=== PATIENT | male | born 1985 ===

== ENCOUNTER 2023-09-12 17:34 | Emergency (ER) | payer BC, SELFPAY ==
[2023-09-12 17:44] VITALS: BP 148/89
[2023-09-12 18:38] LABS: Urine Albumin Trace (Neg - Trace); Urine Bilirubin Negative (Negative); Urine Character Slightly Cloudy (Clear); Urine Color Yellow; Urine Glucose Negative (Negative); Urine Ketone Negative (Negative); Urine Leukocyte Negative (Negative); Urine Nitrite Negative (Negative); Urine Occult Blood 4+ (Negative); Urine Urobilinogen Negative (Neg - 1+); Urine pH 6.5 (5.0-9.0)
[2023-09-12] MEDS: TORADOL 30 MG IV (18:38)
[2023-09-12 18:39] LABS: % Basophils 0.6 % (0-2); % Eosinophils 0.6 % (0-6); % Immature Granulocytes 0.1 % (0-0.5); % Lymphocytes 26.1 % (20.5-51.1); % Monocytes 8.7 % (1.7-9.3); % Neutrophils 63.9 % (42.2-75.2); Absolute Basophils 0.1 10^3/uL (0-0.2); Absolute Eosinophils 0.1 10^3/uL (0-0.7); Absolute Lymphocytes 2.2 10^3/uL (1.2-3.4); Absolute Monocytes 0.7 10^3/uL (0.1-0.6); Absolute Neutrophils 5.3 10^3/uL (1.4-6.5); Hematocrit 40.7 % (39.0-52.0); Hemoglobin 14.7 g/dL (13.0-18.0); Mean Corp Hgb Conc. 36.1 g/dL (33.0-37.0); Mean Corpuscular Hgb 31.2 pg (27.0-31.0); Mean Corpuscular Volume 86.4 fL (80.0-94.0); Mean Platelet Volume 9.1 fL (7.4-10.4); Nucleated Red Blood Cells % 0 % (-); Platelet Count 303 10^3/uL (130-400); Red Blood Cell Count 4.71 10^6/uL (4.70-6.10); Red Cell Dist. Width 12.1 % (11.5-14.5); White Blood Cell Count 8.4 10^3/uL (4.8-10.8)
[2023-09-12] MEDS: NSS 1000 IV (18:41)
[2023-09-12 18:44] LABS: Urine Bacteria Few (Negative); Urine Red Blood Cell 70-80 /HPF (0-2); Urine White Cell 0-2 /HPF (0-5)
[2023-09-12 18:56] LABS: ALT (SGPT) 56 U/L (0-50); AST (SGOT) 39 U/L (17-59); Albumin 4.8 g/dl (3.5-5.0); Alkaline Phosphatase 92 U/L (38-126); Blood Urea Nitrogen 15 mg/dl (9-20); Calcium 9.9 mg/dl (8.4-10.2); Carbon Dioxide 26 mmol/L (22-30); Chloride 103 mmol/L (98-107); Glucose 96 mg/dl (70-99); Potassium 4.2 mmol/L (3.5-5.1); Sodium 140 mmol/L (135-145); Total Bilirubin 0.5 mg/dl (0.2-1.3); Total Protein 7.5 g/dl (6.3-8.2); eGFR > 60.00
[2023-09-12] MEDS: ZOFRAN 4 MG IV (20:06)
[2023-09-12] MEDS: DILAUDID 0.5 MG IV (20:07)
--- NOTE | 2023-09-12 21:05 | ED.GENMED ---
History of Present Illness
General
Chief Complaint: Flank Pain
Source: patient
Exam Limitations: none
Time Seen by Provider: 09/12/23 18:33
Nursing documentation reviewed up to this point in time: agreed with
History of Present Illness
History of Present Illness:
Patient to ED with complaint of right flank pain. Symptoms started this AM and continue to worsen. He has a history of kidney stones, symptoms are similar. Brought to eD by family for eval
Past History
Past History
ED Past Medical History: None
ED Past Surgical History: None
Review of Systems
Review of Systems
Allergies reviewed?: Yes
All Other Systems: ROS reviewed and negative except as documented in HPI and ROS
Constitutional: Reports no symptoms
EENT: Reports no symptoms
Respiratory: Reports no symptoms
Cardiac: Reports no symptoms
ABD/GI: Reports no symptoms
: Reports flank pain
Musculoskeletal: Reports no symptoms
Skin: Reports no symptoms
Neurological: Reports no symptoms
Psychiatric: Reports no symptoms
Phy Exam
General Physical Exam
General Presentation: well appearing and moderate distress
General age: appears stated age
General Skin: warm and dry
General Habitus: normal
General Mental: alert
Gastrointestinal Exam
Gastrointestinal Exam: non tender and soft
Musculoskeletal Exam
Musculoskeletal Exam: full ROM
Skin Exam
Skin Exam: normal color, warm/dry and no rash
Psychiatric Exam
Psychiatric Exam: normal mood/affect
Course
Orders/Labs/Results
Orders:
Orders
09/12/23 18:29
Urinalysis Reflex To Culture Urgent
Date Specimen was Collected: 09/12/23
Time Specimen was Collected: 17:53
Urine Microscopic Reflex Cult Urgent
09/12/23 18:31
Complete Blood Count/With Diff Urgent
Comprehensive Metabolic Panel Urgent
09/12/23 18:35
CT Abd/pel Without Iv Or Oral Urgent
Comment:
Reason For Exam: Right flankpain
0.9% Sodium Chloride 1000 ml [Nss] 1,000 ml IV BOLUS
Ketorolac [Toradol] 30 mg IV NOW STA
09/12/23 19:45
HYDROmorphone [Dilaudid] 0.5 mg IV NOW STA
Ondansetron Injectable [Zofran] 4 mg IV NOW STA
09/12/23 21:02
Tamsulosin [Flomax] 0.4 mg PO NOW STA
Abnormal Lab Results
09/12/23 09/12/23
18:29 18:31
MCH 31.2 H pg
(27.0-31.0)
Absolute Monos (auto) 0.7 H 10^3/uL
(0.1-0.6)
ALT 56 H U/L
(0-50)
Ur Occult Blood Reflex 4+ A
(Negative)
Urine RBC 70-80 A /HPF
(0-2)
Urine Bacteria (Reflex) Few A
(Negative)
09/12/23 18:31
09/12/23 18:31
Vital Signs
Initial and Last Documented VS:
Initial Vital Signs
Temp Pulse Resp BP Pulse Ox
98.7 F 64 18 148/89 98
09/12/23 17:44 09/12/23 17:44 09/12/23 17:44 09/12/23 17:44 09/12/23 17:44
Last Documented Vital Signs
Temp Pulse Resp BP Pulse Ox
98.7 F 64 18 148/89 98
09/12/23 17:44 09/12/23 17:44 09/12/23 17:44 09/12/23 17:44 09/12/23 17:44
*Radiology
Radiology exam reviewed: radiology read reviewed
*Pulse Oximetry
Patient hypoxic: no
*Critical Care Note
Total Time (30-74mins, 75-104mins- exclusive of procedures): Not Applicable
Update Note
Update Note:
Labs CT reviewed. 3mm obstruction right ureteral stone at [facility]. No UTI Pain controlled in dept. He prefers to use ibuprofen at home. Will discharge and he will followup with urology. GIven instructions on s/s tor eturn to ED and he is agreeable
to plan
ED Attending Note
-
Portions of this chart may have been created with voice recognition software.� Occasional wrong word or��sound alike� substitutions may have occurred due to the inherent limitations of voice recognition software.
Discharge Plan
Departure
Patient Disposition: Home (Routine Discharge)
Date of Disposition: 09/12/23
Time of Disposition: 21:02
Patient with high blood pressure during this ER visit?: No
Condition: Good
Covid-19: Not Applicable
Discharge Problem:
Kidney stone
Instructions: Kidney Stones (DC), Ibuprofen, How to Strain Your Urine
Prescriptions:
New
tamsulosin [Flomax] 0.4 mg capsule
0.4 mg PO DAILY Qty: 14 0RF
Referrals:
Pascual Saenz, DO [Family Provider] -
Markus Thompson MD [Active] - Call in 1-3 days for appt
Activity Restrictions/Additional Instructions:
Return to the emergency department immediately for fever/chills, increasing pain, vomiting, or for any further concerns.
Interventions
Interventions:
*Risk Screen - Suicide Last Done: 09/12/23 17:44
*General Assessment Last Done: 09/12/23 17:44
*Neglect/Abuse Screening Last Done: 09/12/23 17:44
BY-Dhggnz-Zzkkbrdgga Assessment Last Done: 09/12/23 18:43
ED-Male Genitourinary Assessment Last Done: 09/12/23 18:43
Discharge Date and Time
Print Language: [email or web address]
[2023-09-12] MEDS: FLOMAX 0.4 MG PO (21:17)
[2023-09-12 21:26] VITALS: BP 144/82
== END 2023-09-12 21:27 | disposition home or self-care (01) ==
LOC: EMR 17:34
PROVIDERS: EMERGENCY PHYSICIAN Emergency Medicine; FAMILY PHYSICIAN Family Medicine
DX: N20.0 Calculus of kidney (principal); Z87.442 Personal history of urinary calculi
CPT/HCPCS: 99284; 96374; 96375; 96361; 74176; 80053; 81003; 81015; 85025

== ENCOUNTER 2024-09-09 22:48 | Emergency (ER) | payer OTHER, SELFPAY ==
[2024-09-09 22:51] VITALS: BP 155/90
[2024-09-09 23:10] LABS: Hematocrit 40.6 % (39.0-52.0); Hemoglobin 14.2 g/dL (13.0-18.0); Mean Corp Hgb Conc. 35.0 g/dL (33.0-37.0); Mean Corpuscular Volume 89.4 fL (80.0-94.0); Nucleated Red Blood Cells % 0 % (-); Platelet Count 274 10^3/uL (130-400); Red Cell Dist. Width 12.1 % (11.5-14.5)
[2024-09-09 23:29] LABS: ALT (SGPT) 35 U/L (0-50); AST (SGOT) 31 U/L (17-59); Albumin 4.8 g/dl (3.5-5.0); Alkaline Phosphatase 77 U/L (38-126); Blood Urea Nitrogen 14 mg/dl (9-20); Calcium 9.6 mg/dl (8.4-10.2); Carbon Dioxide 30 mmol/L (22-30); Chloride 105 mmol/L (98-107); Glucose 107 mg/dl (70-99); Potassium 4.6 mmol/L (3.5-5.1); Sodium 143 mmol/L (135-145); Total Protein 7.7 g/dl (6.3-8.2); eGFR > 60.00
[2024-09-09 23:44] LABS: Troponin I < 0.012 ng/ml
[2024-09-10 00:14] VITALS: BP 140/74
[2024-09-10 01:00] VITALS: BP 136/68
[2024-09-10 02:00] VITALS: BP 128/68
--- NOTE | 2024-09-10 02:02 | ED.GENMED ---
History of Present Illness
General
Chief Complaint: Extremity Pain (non-traumatic)
Source: patient
Exam Limitations: none
Time Seen by Provider: 09/10/24 00:53
Nursing documentation reviewed up to this point in time: agreed with
History of Present Illness
History of Present Illness:
39-year-old male presenting to the emergency department today with concerns of shooting discomfort intermittently going down the left upper extremity over the past 3 days denies any specific chest pain shortness of breath nausea vomiting. Claims
that he has had a family member who had heart disease in their 50s. He denies any additional risk factors no smoking drinking drug use.
Past History
Past History
ED Past Medical History: None
ED Past Surgical History: None
Review of Systems
Review of Systems
Allergies reviewed?: Yes
All Other Systems: ROS reviewed and negative except as documented in HPI and ROS
Phy Exam
Physical Exam
Physical Exam:
GENERAL: Alert , in no apparent distress
EYE: pupils equal and reactive
NECK: Supple, no significant adenopathy.
ENT: o/p clr, mmm.
CARDIAC: Regular rate and rhythm .
LUNGS: Clear breath sounds bilaterally, no acute respiratory distress, no wheezes/rales/rhonchi
ABDOMEN: Soft, without focal tenderness, no r/g, no cvat
NEUROLOGICAL: Alert and oriented, no focal neuro deficits
SKIN: Warm and dry, skin intact.
MUSCULOSKELETAL: No edema, well perfused.
PSYCH: Normal and appropriate interaction.
Course
Orders/Labs/Results
Orders:
Orders
09/09/24 22:55
Electrocardiogram (*1) Urgent
Reason for Study: Chest Pain
EKG- Treatment ONCE
09/09/24 23:03
Complete Blood Count/With Diff Urgent
Comprehensive Metabolic Panel Urgent
Troponin I Urgent
09/10/24 01:25
Chest [CR Chest - 2 Views ] Urgent
Comment:
Reason For Exam: chest discomfort
Abnormal Lab Results
09/09/24
23:03
RBC 4.54 L 10^6/uL
(4.70-6.10)
MCH 31.3 H pg
(27.0-31.0)
Absolute Monos (auto) 0.7 H 10^3/uL
(0.1-0.6)
Monocytes % 10.3 H %
(1.7-9.3)
Glucose 107 H mg/dl
(70-99)
09/09/24 23:03
09/09/24 23:03
Vital Signs
Initial and Last Documented VS:
Initial Vital Signs
Temp Pulse Resp BP Pulse Ox
97.7 F 58 14 155/90 100
09/09/24 22:51 09/09/24 22:51 09/09/24 22:51 09/09/24 22:51 09/09/24 22:51
Last Documented Vital Signs
Temp Pulse Resp BP Pulse Ox
97.7 F 58 17 136/68 97
09/09/24 22:51 09/10/24 01:15 09/10/24 01:15 09/10/24 01:00 09/10/24 02:03
MDM/Problems Addressed
MDM/Problems Addressed:
39-year-old male presenting to the emergency department today with concerns of a tingling achiness going down the left upper extremity. Does have a history of herniated disc of his neck. No specific chest pain or shortness of breath. EKG is
normal vital signs normal labs unremarkable troponin negative no evidence of any emergent cardiac issue. Normal heart and lung examination. No reproducible symptoms at this time. Patient currently asymptomatic. Very low risk for ACS, stable for
outpatient follow-up.
*Pulse Oximetry
SaO2: 97
Oxygen Mode of Delivery: Room air
Patient hypoxic: no (97)
*Critical Care Note
Total Time (30-74mins, 75-104mins- exclusive of procedures): Not Applicable
ED Attending Note
-
Portions of this chart may have been created with voice recognition software.� Occasional wrong word or��sound alike� substitutions may have occurred due to the inherent limitations of voice recognition software.
Discharge Plan
Departure
Patient Disposition: Home (Routine Discharge)
Date of Disposition: 09/10/24
Time of Disposition: 02:24
Patient with high blood pressure during this ER visit?: No
Condition: Good
Covid-19: Not Applicable
Discharge Problem:
Arm pain, left
Instructions: Muscle and Bone Pain (DC)
Prescriptions:
No Action
tamsulosin [Flomax] 0.4 mg capsule
0.4 mg PO DAILY Qty: 14 0RF
Referrals:
Pascual Saenz DO [Family Provider, Family Practice]
Activity Restrictions/Additional Instructions:
You came to the emergency department today with concerns of left arm symptoms. Here your reassuring assessment. Please follow closely with the primary care doctor. Return for any worsening, new or concerning symptoms.
Interventions
Interventions:
*Risk Screen - Suicide Last Done: 09/09/24 22:51
*General Assessment Last Done: 09/09/24 22:51
*Neglect/Abuse Screening Last Done: 09/09/24 22:51
*ED- Fall Risk Assessment Last Done: 09/10/24 00:16
*ED COVID-19 Vaccine History Last Done: 09/10/24 00:16
ED-Musculoskeletal Assessment Last Done: 09/10/24 00:17
Discharge Date and Time
Print Language: [email or web address]
== END 2024-09-10 02:49 | disposition home or self-care (01) ==
LOC: EMR 22:48
PROVIDERS: Emergency Medicine; EMERGENCY PHYSICIAN Emergency Medicine; FAMILY PHYSICIAN Family Medicine
DX: M79.602 Pain in left arm (principal); Z82.49 Family history of ischemic heart disease and other diseases of the circulatory system
CPT/HCPCS: 99285; 71046; 80053; 84484; 85025; 93005